=== PATIENT | female | born 1945 | race Two or more races ===

== ENCOUNTER 2019-03-07 10:05 | Outpatient (CLI) | payer OTHER ==
[~2019-03-07] VITALS: Ht 157.5 cm; Wt 73.5 kg
[~2019-03-07 10:05] MED LIST: DICLOFENAC POTA50 MG PO; HYZAAR 100-121 UDTAB PO; LIPITOR20 MG PO; NORFLEX100MG PO; SYNTHROID75 MCG PO
== END 2019-03-07 10:20 | disposition home or self-care (01) ==
LOC: OFIC 805 10:05
DX: H93.13 Tinnitus, bilateral (principal); R42 Dizziness and giddiness; H91.8X3 Other specified hearing loss, bilateral